=== PATIENT | female | born 1990 | race Caucasian/White ===

== ENCOUNTER 2021-06-21 10:02 | Emergency (ER) | payer OTHER, SELFPAY ==
[2021-06-21 10:12] VITALS: BP 129/79; PULSE 69; RESP 16; TEMP 36.4; O2SAT 100
--- NOTE | 2021-06-21 10:19 | ED.URI ---
HPI - URI/Sore Throat General Chief Complaint: Upper Respiratory Infection Stated Complaint: SORE THROAT/COUGH Source: patient and RN notes reviewed Mode of arrival: ambulatory Limitations: no limitations History of Present Illness HPI Narrative: Ms. Becerra is a 31-year-old female here today for complaints of cough, sore throat, right ear pain ,congestion for the last 5 days she has taken Mucinex and Tylenol Cold which has helped some it does get worse when she lays down at night. She is still tolerating food and fluids without any difficulty. Shee denies chills. She she states she has had Covid in the past. States the coughing is worse when she gets up in the morning. She denies anyone else sick in the house. MD elicited complaint: sore throat and nasal congestion Related Data Allergies Allergy/AdvReac Type Severity Reaction Status Date / Time No Known Allergies Allergy Unknown Unverified 07/24/19 13:27 Review of Systems Review of Systems: CONSTITUTIONAL: Denies body aches, chills, or sweats; + stated fever at times. EYES: Denies visual changes, redness, or discharge. ENT: For nasal congestion, rhinorrhea, sore throat CARDIOVASCULAR: Denies chest pain, palpitations, or edema. RESPIRATORY: Positive for cough. GASTROINTESTINAL: Denies abdominal pain, nausea, vomiting, or diarrhea. GENITOURINARY: Denies dysuria or hematuria. SKIN: Denies rash, itching, or wounds. MUSCULOSKELETAL: Denies back pain, joint pain, or myalgia. NEUROLOGIC: numbness, tingling, or weakness; positive for headache PSYCH: Denies depression or anxiety. All systems reviewed & are unremarkable except as noted in HPI and below PMFSH Family History Family History Father Hypertension Other Family history of cardiovascular disease Social History Social History Smoking status: Never smoker Alcohol intake: never Comments At time of signature, I have reviewed and agree with nursing past medical, surgical, social and family history unless otherwise noted. Please see nursing chart for further information. There is no relevant family history pertinent to the presenting complaint. Exam Narrative: GENERAL: Well-appearing, well-nourished, and in no acute distress. HEAD: Normocephalic, atraumatic. EYES: EOMI. No redness or drainage. Conjunctivae normal. ENT: Mucous membranes pink and moist. Nares erythematous. Clear nasal drainage noted bilaterally. Bilateral TMs fluid-filled bulging no erythema noted. NECK: Normal AROM. Supple. No lymphadenopathy. CHEST: No respiratory distress. Clear to auscultation. MUSCULOSKELETAL: No bony tenderness. EXTREMITIES: Normal range of motion. No edema. SKIN: Warm, dry, no rash. Capillary refill normal. Normal skin turgor. NEURO: No focal deficits. Alert and oriented x3. Gait steady. PSYCH: Normal affect. No signs of depression or anxiety. Course Course Emergency Course: rapid strep negative. Vital Signs Vital signs: Vital Signs Temperature 36.4 C 06/21/21 10:12 Pulse Rate 69 06/21/21 10:12 Respiratory Rate 16 06/21/21 10:12 Blood Pressure 129/79 06/21/21 10:12 Pulse Oximetry 100 06/21/21 10:12 Temperature 36.4 C 06/21/21 10:12 Pulse Rate 69 06/21/21 10:12 Respiratory Rate 16 06/21/21 10:12 Blood Pressure 129/79 06/21/21 10:12 Pulse Oximetry 100 06/21/21 10:12 Reviewed. Pt has been instructed to follow up with her PCP regarding her elevated blood pressure today. MDM - URI/Sore Throat MDM Narrative Medical decision making narrative: Rapid strep is negative; minimal erythema to the throat increased postnasal drainage noted likely viral infection. Differential Diagnosis Differential diagnosis: Likely upper respiratory infection, viral infection and pharyngitis Lab Data Attestation: I reviewed the patient's lab results. Labs: Strep Screen
== END 2021-06-21 10:39 | disposition home or self-care (01) ==
PROVIDERS: Emergency Provider Nurse Practitioner Family; PCP Physician Assistant
DX: B34.9 Viral infection, unspecified (principal)
CPT/HCPCS: 87081; 87880; 99213; G0463

== ENCOUNTER 2023-10-08 09:10 | Outpatient (CLI) | payer OTHER, SELFPAY ==
[2023-10-08 14:23] LABS: Basophils Absolute Auto 0.1 K/mm3 (0.0-0.1); Basophils Percent Auto 1.1 % (0.2-1.2); Eosinophils Percent Auto 0.6 % (0-4.4); Hematocrit 40.5 % (37.0-47.0); Immature Granulocyte Absolute 0.01 K/mm3 (0.00-0.031); Immature Granulocyte Percent A 0.2 % (0-0.5); Mean Corpuscular HGB Conc 32.1 g/dl (32-36); Mean Corpuscular Volume 90.2 fl (80-100); Mean Platelet Volume 11.9 fl (7.4-10.4); Monocytes Absolute Auto 0.4 K/mm3 (0.1-0.6); Monocytes Percent Auto 5.5 % (2.6-8.5); Neutrophils Absolute Auto 4.4 K/mm3 (1.3-6.7); Neutrophils Percent Auto 66.6 % (45.5-73.1); Platelet Count Result 238 k/mm3 (150-375); Red Blood Count 4.49 M/mm3 (4.2-5.4); Red Cell Distribution Width 13.1 % (11.5-14.5); White Blood Count 6.5 K/mm3 (4.5-10.0)
[2023-10-08 14:51] LABS: Hemoglobin A1C 5.1 % (<5.7)
[2023-10-08 14:56] LABS: Alanine Aminotransferase 19 U/L (6-35); Albumin Level 3.9 g/dL (3.5-5.1); Alkaline Phosphatase 56 U/L (38-126); Anion Gap 4 mmol/L (8-16); Aspartate Amino Transferase 37 U/L (14-36); Bilirubin,Total 0.5 mg/dL (0.2-1.3); Blood Urea Nitrogen 14 mg/dL (7-17); Calcium 8.6 mg/dL (8.4-10.2); Carbon Dioxide 28 mmol/L (22-30); Chloride 106 mmol/L (98-107); Cholesterol 179 mg/dL (0-200); Estimated Glomerular Filt Rate > 60; Glucose 77 mg/dL (65-110); HDL Direct 44 mg/dL; Potassium 4.7 mmol/L (3.4-5.0); Sodium 138 mmol/L (137-145); Triglycerides 55 mg/dL (<150)
[2023-10-08 14:57] LABS: Vitamin D 25 Hydroxy 30.1 ng/mL
[2023-10-08 15:08] LABS: LDL Cholesterol Direct 114 mg/dL
[2023-10-08 15:59] LABS: Folic Acid 6.3 ng/mL (2.76->20)
== END 2023-10-08 09:11 | disposition home or self-care (01) ==
LOC: ANHGOSHLAB 09:11
PROVIDERS: PCP Emergency Medicine; Visit Provider Emergency Medicine
DX: R53.83 Other fatigue (principal); Z68.43 Body mass index [BMI] 50.0-59.9, adult
CPT/HCPCS: 36415; 80053; 80061; 82306; 82607; 82746; 83036; 84443; 85025

== ENCOUNTER 2023-10-09 11:45 | Outpatient (CLI) | payer OTHER, SELFPAY ==
[2023-10-11 12:35] LABS: DHEA-Sulfate 336 mcg/dL (23-266)
[2023-10-12 12:15] LABS: Testosterone Total 20 ng/dL (2-45)
[2023-10-14 06:22] LABS: FSH 2.5 mIU/mL (***); LH 1.7 mIU/mL (***); Prolactin 9.7 ng/mL (***)
[2023-10-18 00:51] LABS: Estradiol, Ultrasensitive 68 pg/mL
== END 2023-10-09 11:46 | disposition home or self-care (01) ==
LOC: ANHGOSHLAB 11:46
PROVIDERS: PCP Emergency Medicine; Visit Provider Emergency Medicine
DX: N93.9 Abnormal uterine and vaginal bleeding, unspecified (principal); L68.0 Hirsutism
CPT/HCPCS: 36415; 82627; 82670; 83001; 83002; 84146; 84403

== ENCOUNTER 2023-11-05 09:45 | Outpatient (CLI) | payer OTHER, SELFPAY ==
--- NOTE | 2023-11-05 11:30 | NEURO_ITS ---
Impression: # Complains of numbness of hands with nocturnal paresthesia. # Bilateral moderate Carpal Tunnel Syndrome. # No ulnar neuropathy. # Needle/EMG exam mildly abnormal in APB. Nerve Conduction Studies Anti Sensory Summary Table Stim Site NR Peak (ms) P-T Amp (?V) Site1 Site2 Delta-P (ms) Dist (cm) William (m/s) Left Median Anti Sensory (2-3nd Digit) Wrist 6.0 6.8 Wrist 2-3nd Digit 6.0 14.0 23 Wrist 4.8 9.4 Wrist 2-3nd Digit 6.0 14.0 23 Right Median Anti Sensory (2-3nd Digit) Wrist 5.1 12.4 Wrist 2-3nd Digit 5.1 14.0 27 Wrist 5.4 13.8 Wrist 2-3nd Digit 5.1 14.0 27 Left Radial Anti Sensory (Base 1st Digit) Wrist 2.5 25.4 Wrist Base 1st Digit 2.5 0.0 Right Radial Anti Sensory (Base 1st Digit) Wrist 1.8 32.5 Wrist Base 1st Digit 1.8 0.0 Left Ulnar Anti Sensory (5th Digit) Wrist 2.4 85.6 Wrist 5th Digit 2.4 14.0 58 Right Ulnar Anti Sensory (5th Digit) Wrist 2.3 48.3 Wrist 5th Digit 2.3 14.0 61 Motor Summary Table Stim Site NR Onset (ms) O-P Amp (mV) Site1 Site2 Delta-0 (ms) Dist (cm) William (m/s) Left Median Motor (Abd Poll Brev) Wrist 5.3 3.7 Elbow Wrist 5.2 30.0 58 Elbow 10.5 3.1 Right Median Motor (Abd Poll Brev) Wrist 5.1 2.5 Elbow Wrist 5.1 29.0 57 Elbow 10.2 2.5 Left Ulnar Motor (Abd Dig Minimi) Wrist 2.1 8.9 A Elbow Wrist 4.9 33.0 67 A Elbow 7.0 7.5 Right Ulnar Motor (Abd Dig Minimi) Wrist 2.0 7.4 A Elbow Wrist 4.5 30.0 67 A Elbow 6.5 5.3 F Wave Studies NR F-Lat (ms) L-R F-Lat (ms) Left Median (Mrkrs) (Abd Poll Brev) 27.43 0.47 Right Median (Mrkrs) (Abd Poll Brev) 26.96 0.47 Left Ulnar (Mrkrs) (Abd Dig Min) 25.64 0.14 Right Ulnar (Mrkrs) (Abd Dig Min) 25.78 0.14 EMG Side Muscle Nerve Root Ins Act Fibs Amp Dur Recrt Comment Right 1stDorInt Ulnar C8-T1 Nml Nml Nml Nml Nml Right Ext Indicis Radial (Post Int) C7-8 Nml Nml Nml Nml Nml Right Ext Digitorum Radial (Post Int) C7-8 Nml Nml Nml Nml Nml Right BrachioRad Radial C5-6 Nml Nml Nml Nml Nml Right PronatorTeres Median C6-7 Nml Nml Nml Nml Nml Right Abd Poll Brev Median C8-T1 Nml Nml Nml >12ms Reduced Right ABD Dig Min Ulnar C8-T1 Nml Nml Nml Nml Nml Left 1stDorInt Ulnar C8-T1 Nml Nml Nml Nml Nml Left Ext Indicis Radial (Post Int) C7-8 Nml Nml Nml Nml Nml Left Ext Digitorum Radial (Post Int) C7-8 Nml Nml Nml Nml Nml Left BrachioRad Radial C5-6 Nml Nml Nml Nml Nml Left PronatorTeres Median C6-7 Nml Nml Nml Nml Nml Left Abd Poll Brev Median C8-T1 Nml Nml Nml >12ms Reduced Left ABD Dig Min Ulnar C8-T1 Nml Nml Nml Nml Nml MTDD
== END 2023-11-05 09:46 | disposition home or self-care (01) ==
LOC: ANHNEURO 09:47
PROVIDERS: PCP Emergency Medicine; Visit Provider Emergency Medicine
DX: G56.03 Carpal tunnel syndrome, bilateral upper limbs (principal)
CPT/HCPCS: 95886; 95911

== ENCOUNTER 2023-11-06 09:35 | Outpatient (CLI) | payer OTHER, SELFPAY ==
--- NOTE | ~2023-11-06 | US_ITS ---
EXAMINATION: US transvaginal DATE: 11/06/2023 10:33 INDICATION: Hirsutism TECHNIQUE: Multiple endovaginal sonographic images of the pelvis were obtained. COMPARISON: None. FINDINGS: The uterus measures 7.8 x 4 x 5.4 cm. The endometrial complex measures 6 mm. The right ovar y measures 2.9 x 2.1 x 1.8 cm and appears to contain a 1.6 cm corpus luteum. The left ovary measures 1.6 x 2.7 x 1.1 cm there is a questionable 1.4 cm isoechoic mass of the left ovary.. There is normal vascular flow in the ovaries. There is no free fluid in the pelvis. IMPRESSION: 1. Probable benign isoechoic lesion of the left ovary. Follow-up pelvic ultrasound in six months is r ecommended. Reviewed, dictated and finalized at location B. ITORY COUNSELOR IMPRESSION: 1. Probable benign isoechoic lesion of the left ovary. Follow-up pelvic ultraso und in six months is recommended.
== END 2023-11-06 09:36 | disposition home or self-care (01) ==
LOC: ANHIMG 09:37
PROVIDERS: PCP Emergency Medicine; Visit Provider Emergency Medicine
DX: N93.9 Abnormal uterine and vaginal bleeding, unspecified (principal); L68.0 Hirsutism
CPT/HCPCS: 76830

== ENCOUNTER 2023-11-12 09:25 | Emergency (ER) | payer OTHER, SELFPAY ==
[2023-11-12 09:45] VITALS: BP 126/79; PULSE 86; RESP 16; TEMP 36.9; O2SAT 100
--- NOTE | 2023-11-12 09:57 | ED.URI ---
HPI - URI/Sore Throat General Chief Complaint: Upper Respiratory Infection Stated Complaint: exposure to influenza Time Seen by Provider: 11/12/23 09:57 Source: patient, RN notes reviewed and old records reviewed Mode of arrival: ambulatory Limitations: no limitations History of Present Illness HPI Narrative: 33-year-old female who presents to [facility] with complaints of sinus headache,congestion, body aches and cough which started last night. Patient reports she has a child at home with influenza A that was diagnosed on Saturday 3 days ago. Patient reports highest fever noted to be 100.8F Patient reports that she did have flu shot this season.Patient reports that she has taken some Tylenol for her symptoms. MD elicited complaint: cough, rhinorrhea, nasal congestion and other (body aches) Onset (ago): day(s) (since last night) Pain scale (0-10): 3 Able to tolerate fluids by mouth: Yes Treatments prior to arrival: acetaminophen Related Data Home Medications Medication Instructions Recorded Confirmed escitalopram oxalate 20 mg tablet 20 mg PO DAILY 10/02/23 11/12/23 lisinopril 10 mg tablet 10 mg PO DAILY 10/02/23 11/12/23 Allergies Allergy/AdvReac Type Severity Reaction Status Date / Time No Known Allergies Allergy Unknown Verified 10/09/23 11:07 Review of Systems Review of Systems: CONSTITUTIONAL: Reports malaise, chills, sweats, or fever. EYES: Denies visual changes, redness, or discharge. ENT: Reports rhinorrhea, congestion, sinus pain, no otalgia and no sore throat. CARDIOVASCULAR: Denies chest pain, palpitations, or edema. RESPIRATORY: Reports cough.? Denies dyspnea. GASTROINTESTINAL: Denies abdominal pain, nausea, vomiting, diarrhea SKIN: Denies rash or itching. MUSCULOSKELETAL:positive for myalgia. NEUROLOGIC: Positive for headache. All systems reviewed & are unremarkable except as noted in HPI and below PMFSH Past Medical History Medical History (Updated 11/14/23 @ 07:40 by Carrol Mcfadden NP) Anxiety and depression HTN (hypertension) Surgical History Surgical History (Updated 11/14/23 @ 07:45 by Carrol Mcfadden NP) History of cholecystectomy History of dilatation and curettage History of tonsillectomy [place] teeth extracted Family History Family History Father Hypertension Heart problem Cancer Mother Cancer Hypertension Thyroid disorder Sibling Thyroid disorder Grandparent Thyroid disorder Other Family history of cardiovascular disease Social History Social History (Updated 11/14/23 @ 07:41 by Carrol Mcfadden NP) Years smoked: 6 Smoking status: Current every day smoker Tobacco type: e-cigarettes/vaping Smoking end date: 09/16/21 Alcohol intake: current Drinks per week: 1 Substance use: never Comments At time of signature, agree with nursing past medical, surgical, social and family history. There is no relevant family history pertinent to the presenting complaint Exam Narrative: GENERAL: Well-appearing, well-nourished, and in no acute distress. HEAD: Normocephalic EYES: PERRLA, conjunctivae clear ENT: Nares clear, turbinates edematous and erythematous, clear discharge, sinus pressure Mucous membranes moist. TM pearly ellis with dull light reflex bilaterally; no tragal tenderness. Oropharynx erythematous without lesions. Tonsils not present and throat without exudate, no drooling, no hoarseness, no trismus, uvula midline. NECK: Supple. No lymphadenopathy CHEST: Clear to auscultation, breath sounds equal. No wheezing, rhonchi, rales, or stridor. No respiratory distress, speaks in full sentences.cough SAO2 100% on room air HEART: Regular rate and rhythm. No murmur heard. SKIN: Warm, dry, no rash. NEURO: Alert and oriented x3. PSYCH: Normal mood and affect Course Course Emergency Course: Patient is aware of diagnosis, understands and agre
== END 2023-11-12 10:25 | disposition home or self-care (01) ==
PROVIDERS: Emergency Provider Registered Nurse; PCP Emergency Medicine
DX: J11.1 Influenza due to unidentified influenza virus with other respiratory manifestations (principal); Z20.822 Contact with and (suspected) exposure to COVID-19; I10 Essential (primary) hypertension; F41.9 Anxiety disorder, unspecified; F32.A Depression, unspecified
CPT/HCPCS: 87426; 87804; 99213; G0463

== ENCOUNTER 2023-12-17 08:15 | Outpatient (RCR) | payer OTHER, SELFPAY ==
--- NOTE | 2023-10-16 13:21 | OTOPEVAL1 ---
Assessment and note entered by ASHVIN Way/Leonie, CHT Evaluation Information 10/16/23 Diagnosis Bilateral carpal tunnel syndrome Subjective Information Patient reports experiencing symptoms on/off for about a year. 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 She feels constant numbness in the thumb, index, and middle finger tips. She reports night pain. Has been wearing splints at night for about a week. She is left handed. Reported Pain Level Pain Score 0: Self Report Additional Pain Score Comments No pain at rest, just constant tingling . Pain at worst 6/10. Assessment OT Clinical Summary Patient referred to OT with dx of bilateral carpal tunnel syndrome. She presents with pain, weakness , and reduced sensation of bilateral hands, which has been affecting her ability to complete work tasks and ADLs. Skilled OT indicated to reduce symptoms of median nerve compression through splinting, modalities, manual therapy, nerve glides, and strengthening. She will also benefit from HEP instruction and progression. Plan of Care Interventions Therapeutic Exercise,Manual Therapy,Neuro Re- education,Therapeutic Activities,Hot Pack/Cold Pack,Check Out for Orthotic/Pr,Ultrasound,Paraffin OT Services Indicated Yes Treatment Frequency and 2x/week for 8 visits Duration These treatments will address the objective and functional deficits as defined above. The patient will be advanced safely and appropriately in order for the patient to progress towards his/her prior level of function. Additional exercises will be introduced and as well as a comprehensive home exercise program upon discharge, if needed, ?to ensure carryover of functional gains achieved in the clinic. This treatment plan has been reviewed and agreement upon by the patient.
--- NOTE | 2023-10-16 13:21 | OPREHPOC ---
Outpatient Therapy Plan of Care This is a Multidisciplinary Plan of Care that may contain components documented by all disciplines (PT, OT, and ST.) OT Problem 1 OT Problem #1 Knowledge Deficit OT Goal 1 Goal 1. Patient to be independent with instructed materials. OT Problem 2 OT Problem #2 Pain OT Goal 1 Goal 1. Patient to report reduced pain in bilateral hands to 2/10 or less at worst .8 Target Visit 8 OT Problem 3 OT Problem #3 Impaired Flexibility OT Goal 1 Goal 1. Patient to be able to complete median nerve glide HEP without onset of paresthesias. Target Visit 8 OT Problem 4 OT Problem #4 Impaired Sensation OT Goal 1 Goal 1. Patient to test normal on the SWMF sensation test on bilateral hands. Target Visit 8 OT Problem 5 OT Problem #5 Impaired Strength OT Goal 1 Goal 1. Patient to be able to complete functional transportation security officer/ pinch strengthening with yellow putty x5 minutes without onset of paresthesias. Target Visit 8
--- NOTE | 2023-11-13 08:54 | PCOTNOTE ---
Patient called & cancelled scheduled appointment this date due to illness.
--- NOTE | 2023-12-02 11:06 | OTOPPROG ---
Assessment and note entered by ASHVIN Way/Leonie, CHT Progress Update 12/02/23 Diagnosis Bilateral carpal tunnel syndrome Subjective Information Patient reports her symptoms tend to feel better after therapy, but temporarily. She continues to report tingling in the median nerve distribution of bilateral hands. She is wearing splints at night and sometimes during the day. She reports she has an appointment with a hand surgeon Saturday. Assessment OT Clinical Summary Patient referred to OT with dx of bilateral carpal tunnel syndrome. She continues to present present with pain, and reduced sensation of bilateral hands, which has been affecting her ability to complete work tasks and ADLs. She has been compliant with all materials. There has been progress, however the progress is unfortunately temporary. She is following up with a hand surgeon next week. Continued skilled OT indicated to reduce symptoms of median nerve compression through use of modalities, manual therapy, nerve glides, stretching, and strengthening. Plan of Care Interventions Therapeutic Exercise,Manual Therapy,Neuro Re- education,Therapeutic Activities,Hot Pack/Cold Pack,Check Out for Orthotic/Pr,Ultrasound,Paraffin OT Services Indicated Yes Treatment Frequency and 1-2x/week for 5 visits Duration These treatments will address the objective and functional deficits as defined above. The patient will be advanced safely and appropriately in order for the patient to progress towards his/her prior level of function. Additional exercises will be introduced and as well as a comprehensive home exercise program upon discharge, if needed, ?to ensure carryover of functional gains achieved in the clinic. This treatment plan has been reviewed and agreement upon by the patient.
--- NOTE | 2023-12-31 14:28 | PCOTNOTE ---
Patient did not show up for scheduled appointment this date. Called patient and left voicemail regarding missed appointment.
--- NOTE | 2024-01-07 14:53 | OTOPDC ---
Assessment and note entered by Anurag Hodgson, OTR/Leonie, CHT OT Discharge Notification 01/07/24 OT Clinical Summary Patient has not shown for her last 2 therapy appointments and we have been unable to reach her. Patient attended 11 OT appointments for bilateral carpal tunnel syndrome. Overall, progress was guarded. She would make improvements temporarily, but the symptoms would return within a day or two. Discharging the patient due to poor attendance.
== END 2024-01-08 12:35 | disposition home or self-care (01) ==
LOC: ANHOT 08:15
PROVIDERS: PCP Emergency Medicine; Visit Provider Emergency Medicine
DX: G56.03 Carpal tunnel syndrome, bilateral upper limbs (principal)
CPT/HCPCS: 97018; 97035; 97110; 97140; 97165; 99199

== ENCOUNTER 2024-04-29 00:29 | Day surgery (SDC) | payer OTHER, SELFPAY ==
[2024-04-22 14:59] VITALS: BMI 50.5
--- NOTE | 2024-04-22 15:09 | PC.NURSE ---
Report to the Outpatient Waiting Room, entrance under the green pavilion located off [facility], at time 0800_ on date _04/29/24_. Planned Procedure Time: _1000. Time changes happen often and if your time is changed the preop area will call you the afternoon before. - You and your visitor will be asked to self-screen and do not enter if you have any COVID symptoms. - A mask is optional within the hospital at this time. Patients may have clear liquids (water, carbonated beverages, clear teas, apple juice) until 8 hours prior to surgery with a maximum of 20 ounces. - No food from midnight until time of surgery - Infants may have breast milk until 4 hours before surgery, formula 6 hours prior to surgery. - Children will be allowed to drink immediately following surgery. If applicable, please bring a bottle or sippy cup to assist with drinking. Juice, water, soda, and popsicles are readily available. For infants on formula, please bring formula the day of surgery. Pacifiers are allowed. Take the following medications with a SIP of water the morning of surgery: NONE DO NOT STOP ANY OF YOUR OTHER PRESCRIPTION MEDICATIONS PRIOR TO SURGERY ?EXCEPT THE FOLLOWING Medications to discontinue per physician VITAMINS, SUPPLIMENTS Date to take last dose 04/26/24 Please no make-up, nail czech, hairspray, perfume, deodorant, or body powder the day of surgery. No jewelry (including any body piercings) or valuables the day of surgery, leave them at home. Please take a shower or bath the night before, or the morning of, surgery with an antibacterial soap. Wear comfortable, loose fitting clothing. Children are encouraged to wear pajamas. - Jewelry must be removed prior to entering the operating room. Rings and piercings that are not removed may be cut off. - The hospital will not accept responsibility for valuables. - Please leave all valuables, including medications, at home the day of surgery. If you are going home after surgery, a licensed concrete mixing truck driver must drive you home. - NO public transportation without another adult if you receive anesthesia. - We recommend that an adult stay with you for 24 hours following discharge. - We also recommend that you do not drive, make important decision, drink alcoholic beverages, or take any drugs that were not prescribed by your health care provider for at least 24 hours after your discharge time. For Pediatric surgeries, we recommend two adults accompany the child home. Follow any additional instructions given to you from your surgeon. If you or anyone in your household have experienced Covid symptoms in the past week, please notify your surgeon or the nurse liaison at the phone number below for possible testing. Telephone instructions given to _PATIENT___and asked if any additional questions and then verbalized understanding. Patient advised to call surgeon office or pre surgery nurse liaison [phone] if any additional questions.
--- NOTE | 2024-04-29 06:49 | P.HP_ITS ---
History of Present Illness History of Present Illness Consent: Chief complaint: right carpal tunnel syndrome Narrative: Patient seen and examined in pre-operative holding area. No interval change in medical history or symptoms. Patient recalls previous discussion of benefits and alternatives to procedure. Continues to desire to proceed with right endoscopic possibleopen carpal tunnel release. Reviewed procedure, post-op expectations and risks including but not limited to bleeding, infection, injury to tendon/nerve/vessel, decreased hand function, stiffness, RSD, no change or worsening of symptoms. I discussed the possible use of assistants and their pa rticipation in the case. Patient stated understanding and signed the consent form wishing to proceed. Review of Systems Review of Systems: All systems reviewed & are unremarkable except as noted in HPI and below PMFSH Past Medical History Medical History Anxiety and depression HTN (hypertension) Surgical History Surgical History History of cholecystectomy History of dilatation and curettage History of tonsillectomy [place] teeth extracted Family History Family History Father Hypertension Heart problem Cancer Mother Cancer Hypertension Thyroid disorder Sibling Thyroid disorder Grandparent Thyroid disorder Other Family history of cardiovascular disease Social History Social History Smoking packs per day: 0.5 Smoking cigarettes per day: 10.0 Years smoked: 3 Smoking pack-years: 1.50 Smoking status: Current every day smoker Tobacco type: e-cigarettes/vaping Smoking end date: 09/16/21 Additional smoking assessment comments: 5 YRS DAILY VAPING, NO CIGARETTES AT THIS TIME Alcohol intake: current Drinks per week: 1 Alcohol use details: 1-2 PER MONTH Substance use: former Substance use type: marijuana Other substance usage details: LAST USE 3 YRS AGO Living arrangements: with family Meds Home Medications and Allergies Home Medications Medication Instructions Recorded Confirmed Type lisinopril 10 mg tablet 10 mg PO DAILY 10/02/23 04/29/24 History calcium 300 mg-D3 25 mcg-magnesium 1 tablet PO DAILY 04/22/24 04/29/24 History 66 mg-K2 37.5 mcg-herbal tablet (Alive Calcium-Vitamin D3-K2) multivit with minerals-iron 18 1 tablet PO DAILY 04/22/24 04/29/24 History mg-folic ac 400 mcg-vit K 25 mcg tablet (Adults Multivitamin) omega-3 fatty acids-fish oil 300 1 cap PO DAILY 04/22/24 04/29/24 History mg-500 mg capsule (Fish Oil) turmeric 400 mg capsule 400 mg PO DAILY 04/22/24 04/29/24 History Allergies Allergy/AdvReac Type Severity Reaction Status Date / Time No Known Allergies Allergy Unknown Verified 04/22/24 14:56 Exam Narrative: unchanged Assessment and Plan Assessment and plan (1) Carpal tunnel syndrome on both sides: Code(s): G56.03 - Carpal tunnel syndrome, bilateral upper limbs Status: Acute Assessment and Plan: cont as above
--- NOTE | 2024-04-29 06:50 | P.OP_ITS ---
Procedure Note - Detailed Date of Procedure 04/29/24 Pre-op Diagnosis right carpal tunnel syndrome Post-op Diagnosis Same Procedure Performed right ectr Surgeon Ting Puri MD Knit Goods Mender philippe vences pa-c Anesthesia MAC Description of Procedure INFORMED CONSENT: The patient was seen and examined and marked in the pre-op area.? The patient signed the consent form. PROCEDURE IN DETAIL:The patient taken back to OR on the stretcher in supine position. Time out performed with anesthesia, surgeon and staff agreeing on patient's name site and surgery to be performed SCDs were placed on the lower extremities and inflated. A tourniquet was placed on {right} upper extremity and antibiotics given IV After anesthesia administered sedation I injected {5}cc 1%lido with epi and 0.5% marcaine plain at the operative site The?{right upper extremity}?was prepped and draped in sterile fashion the??{right upper extremity} was? exsanguinated with Esmarch bandage and tourniquet inflated to 250mmHg I made a transverse incision in the {right} volar distal wrist crease through skin and dermis with 15 blade scalpel.? Littler scissors spread down to antebrachial fascia. A small incision was made in antebrachial fascia allowing access to Carpal tunnel. I proceeded with sequential dilation staying in line with the ring finger and hugging the hook of the hamate.? I then used the synovial elevator to free any adhesions from the underside of the transverse carpal ligament. Next I was able to insert the Microaire endoscopic carpal tunnel device with direct visualization of the transverse fibers on the monitor and proceeded with complete segmental retrograde release of the ligament in its entirety.? I irrigated with normal saline and closed with 4-0 monocryl for dermis and subcuticular closure. A dressing of Dermabond, 4x4, elena, and a volar splint was applied for patient safety, security, and comfort and secured with an noe bandage after the tourniquet was let down noting the hand was warm and well perfused. The patient was then awaken from anesthesia and transferred to the recovery room in stable condition.? Complications - none EBL- 0cc Disposition - home in stable conditions philippe vences pa-c was essential for positioning, retraction, closure and dressing placement [facility] Billing Surgery - Charge Forward: Surgery Billing ([id number] for philippe)
[2024-04-29 08:15] VITALS: BP 142/83; PULSE 80; RESP 20; TEMP 36.2; O2SAT 99
[2024-04-29] MEDS: LACTATED RINGERS 1,000 ML 30 ML IV CONT (08:30)
--- NOTE | 2024-04-29 08:41 | WPDANESEPPF ---
Anes - Initial Pre Proc Eval Procedure: Operation Date: 04/29/24 10:00 Proposed Procedures p Right Endoscopic Carpal Tunnel Release, Possible Open - Ting Puri MD Date/Time: 04/29/24 08:41 Surgeon: Ting Puri MD Pre Op Diagnosis: right carpal tunnel syndrome Patient Data Age: 34 Gender: F Height: 1.68 m Weight: 142 kg Allergies Allergy/AdvReac Type Severity Reaction Status Date / Time No Known Allergies Allergy Unknown Verified 04/22/24 14:56 Home Medications Medication Instructions Recorded Confirmed Type lisinopril 10 mg tablet 10 mg PO DAILY 10/02/23 04/29/24 History calcium 300 mg-D3 25 mcg-magnesium 1 tablet PO DAILY 04/22/24 04/29/24 History 66 mg-K2 37.5 mcg-herbal tablet (Alive Calcium-Vitamin D3-K2) multivit with minerals-iron 18 1 tablet PO DAILY 04/22/24 04/29/24 History mg-folic ac 400 mcg-vit K 25 mcg tablet (Adults Multivitamin) omega-3 fatty acids-fish oil 300 1 cap PO DAILY 04/22/24 04/29/24 History mg-500 mg capsule (Fish Oil) turmeric 400 mg capsule 400 mg PO DAILY 04/22/24 04/29/24 History Patient hx anesthesia problems: none Family hx anesthesia problems: none Results Review: All pre-operative results and documents have been reviewed as part of the pre-operative evaluation. [facility] Past Medical History Medical History Anxiety and depression HTN (hypertension) Surgical History Surgical History History of cholecystectomy History of dilatation and curettage History of tonsillectomy [place] teeth extracted Family History Family History Father Hypertension Heart problem Cancer Mother Cancer Hypertension Thyroid disorder Sibling Thyroid disorder Grandparent Thyroid disorder Other Family history of cardiovascular disease Social History Social History Smoking packs per day: 0.5 Smoking cigarettes per day: 10.0 Years smoked: 3 Smoking pack-years: 1.50 Smoking status: Current every day smoker Tobacco type: e-cigarettes/vaping Smoking end date: 09/16/21 Additional smoking assessment comments: 5 YRS DAILY VAPING, NO CIGARETTES AT THIS TIME Alcohol intake: current Drinks per week: 1 Alcohol use details: 1-2 PER MONTH Substance use: former Substance use type: marijuana Other substance usage details: LAST USE 3 YRS AGO Living arrangements: with family Jesus Alberto - Autumn Final PreProcedure Day of Procedure 04/29/24 08:41 Patient weight: super morbidly obese Heart: regular rate and rhythm Lungs: clear to auscultation and normal air movement Airway: Mallampati scale class III Neurological: alert and oriented Last oral intake: >/= 8 hours ASA classification: III Emergent: no Anesthetic plan: proceed Anesthesia type and monitoring: general (LMA if needed) GIVS Results Review: All pre-operative results and documents have been reviewed as part of the pre-operative evaluation. Informed Consent: The patient's anesthetic plan and its attendant risks and benefits were discussed with the patient/family/POA. Questions were solicited and answers provided to the satisfaction of the patient/family/POA.
[2024-04-29] MEDS: ceFAZolin 3 GM/D5W 100 ML 100 ML IVPB (09:31)
[2024-04-29] MEDS: LIDO 1%/EPINEPHRINE 1:100,000 50 ML VIAL 10 ML INFILTRATE (09:32)
[2024-04-29] MEDS: BUPivacaine HCL 0.5% PF 30 ML VIAL INFILTRATE (09:34)
[2024-04-29 09:54] VITALS: BP 127/69; PULSE 83; RESP 18; O2SAT 98
[2024-04-29 10:20] VITALS: BP 131/79; PULSE 70
[2024-04-29 10:50] VITALS: BP 101/70; PULSE 59
== END 2024-04-29 10:53 | disposition home or self-care (01) ==
PROVIDERS: PCP Emergency Medicine; Visit Provider Plastic Surgery
PROC: 01N54ZZ Release Median Nerve, Percutaneous Endoscopic Approach (ICD-10-PCS; CPT 29848; principal; 2024-04-29 10:00)
DX: G56.01 Carpal tunnel syndrome, right upper limb (principal); I10 Essential (primary) hypertension; F41.8 Other specified anxiety disorders; F17.290 Nicotine dependence, other tobacco product, uncomplicated; E66.01 Morbid (severe) obesity due to excess calories; Z68.43 Body mass index [BMI] 50.0-59.9, adult
CPT/HCPCS: 29848; J0690; J1100; J2250; J2405; J2704; J3010; J7120

== ENCOUNTER 2025-01-06 08:40 | Outpatient (CLI) | payer OTHER, SELFPAY ==
--- NOTE | ~2025-01-06 | US_ITS ---
US pelvic complete w TV Ordering provider: Haily Noel MD History: . N83.8 - Other noninflammatory disorders of ovary, fallopi... . Comparison: November 06, 2023 Technique: Transabdominal and endovaginal ultrasound of the pelvis (Doppler ultrasound interrogation techniques used as needed for this exam.) FINDINGS: CERVIX: Normal. UTERUS: Measures 6.9x 4.7x 4.3 cm in length which is within normal limits and is anteverted. No myom etrial masses. ENDOMETRIUM: Normal in thickness measuring 0.7 mm. No endometrial masses, cysts or fluid. CUL DE SAC: No free fluid. RIGHT OVARY: Normal in size measuring 2.3x 1.7x 1.8 cm. Normal echotexture. Doppler vascular flow pre sent. LEFT OVARY: Normal in size measuring 2.4x 2.3x 1.3 Normal echotexture. Doppler vascular flow present. Isoechoic area measuring 1.6 x 1.8 x 0.9 cm which is most likely normal tissue. Follow-up advised. ADNEXA: Normal. No mass. IMPRESSION: Isoechoic area with ill-defined borders in the left ovary which is most likely normal tissue. Follow- up ultrasound is advised. Otherwise, normal pelvic ultrasound. Reviewed, dictated and finalized at location A. IMPRESSION: Isoechoic area with ill-defined borders in the left ovary which is most likely normal tissue. Follow-up ultrasound is advised. Otherwise, normal pelvic ultras ound.
--- OUTSIDE RECORDS SUMMARY | 2025-01-06 09:09 | XMS_ITS | Clinical Summary ---
Author Organization [facility] Address [address] [place] [address] Care Team Providers Care Manager Talent Acquisition Name Role Phone Unavailable Primary Care Provider Unavailabl e Source Comments [facility],non-owned Affiliates and Associated Physician Practices is amultiple site organization consisting of ambulatory clinics and hospital sitesin [place], [place], [place] and [place]. This disclosure is being madepursuant to the Care Everywhere program and may not contain all information available regarding this patient. 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 Gender Identity Not on file Sexual Orientation Not on file Plan of Treatment Health Maintenance Due Date Last Done Comments HIV SCREENING 2005 HEPATITIS C SCREENING 01/26/2008 DTAP/TDAP/TD VACCINES (1 - Tdap) 2009 HEPATITIS B VACCINE (1 of 3 - 19+ 3-dose series) 2009 COVID-19 VACCINE ( - 2023-2 5 season) 2024 DEPRESSION SCREENING 09/16/2024 INFLUENZA VACCINE (Season Ended) 2025 ZOSTER VACCINE (1 of 2) 01/31/2040 HIB VACCINE Aged Out No longer eligi ble based on patient's age to complete this topic HPV VACCINE Aged Out No longer eligi ble based on patient's age to complete this topic MENINGOCOCCAL (Group B) VACC INE SHARED DECISION-MAKING Aged Out No longer eligibl e based on patient's age to complete this topic MENINGOCOCCAL GROUPS A/C/Y/W VACCINE Aged Out No longer eligible b ased on patient's age to complete this topic PNEUMOCOCCAL VACCINE Aged Out No long er eligible based on patient's age to complete this topic Insurance
--- OUTSIDE RECORDS SUMMARY | 2025-01-06 09:09 | XMS_ITS | Clinical Summary ---
Author Organization [employer] [address] Address [address] [facility] [address] [place] [address] Phone Care Team Providers Care Engine Builder Name Role Phone Haily Noel MD Primary Care Provider +1 [phone] Social History Tobacco Use Types Packs/Day Years Used Date Smoking Tobacco: Never Assessed Comments Unknown Sex and Gender Information Value Date Recorded Sex Assigned at Not on file Legal Sex Female 3:35 PM CDT Gender Identity Not on file Sexual Orientation Not on file Last Filed Vital Signs Vital Sign Reading Time Taken Comments Blood Pressure 117/67 07/28/2015 11:00 AM TANGIBLE PERSONAL PROPERTY APPRAISER si tting Pulse 82 07/28/2015 11:00 AM TANGIBLE PERSONAL PROPERTY APPRAISER Temperature - - Respiratory Rate - - Oxygen Saturation - - Inhaled Oxygen Concentration - - Weight 147.9 kg (326 lb) 07/28/2015 11:00 AM TANGIBLE PERSONAL PROPERTY APPRAISER Height 167.6 cm (5' 6 ) 07/28/2015 11:00 AM TANGIBLE PERSONAL PROPERTY APPRAISER Body Mass Index 52.62 07/28/2015 11:00 AM TANGIBLE PERSONAL PROPERTY APPRAISER Plan of Treatment Health Maintenance Due Date Last Done Comments DTAP/TDAP/TD VACCINES (1 - Tdap) 2009 HEPATITIS B VACCINES (1 of 3 - 19+ 3-dose series) 2009 HPV/Cotest (21-29) 2011 CERVICAL CANCER SCREENING 01/31/2020 HPV/Cotest (30-65) 01/31/2020 PAP SMEAR 01/31/2020 INFLUENZA VACCINE (#1) 2024 HPV VACCINES Aged Out No longer eligi ble based on patient's age to complete this topic Care Teams Engine Builder Relationship Specialty Start Date End Date Haily Noel MD PCP - General Family Practice 11/22/15
--- OUTSIDE RECORDS SUMMARY | 2025-01-06 09:09 | XMS_ITS | Clinical Summary ---
Author Organization [facility] [address] Address [address] [place] [phone] Care Team Providers Care Habilitative Interventionist Name Role Phone Mary Gonzalez Primary Care Provi myriam Allergies No known active allergies Medications escitalopram (LEXAPRO) 20 mg tablet Take 20 mg by mouth nightly 2 Active Ashlyna 0.15 mg-30 mcg (84)/10 mcg (7) tablets,dose pack,3 month Take 1 tablet by mouth daily 2 Active albuterol HFA (PROVENTIL HFA,VENTOLIN HFA,PROAIR HFA) 90 mcg/actuation inhalerIndicati ons:Bronchitis Inhale 2 puffs every 6 (six) hours as needed for wheezing or shortness of breath 1 each 2 Active benzonatate (TESSALON) 200 mg capsuleIndicati ons:Bronchitis Take 1 capsule (200 mg total) by mouth 3 (three) times a day as needed for cough 30 capsule 2 Active Active Problems Problem Noted Date Diagnosed Date Benign intracranial hypertension 10/07/2015 Surgical History Surgery Date Site/Laterality Comments CHOLECYSTECTOMY Social History Tobacco Use Types Packs/Day Years Used Date Smoking Tobacco: Former Personal Safety Answer Date Recorded Getting School Help Needed Not on file 11/11 Comments Unknown Sex and Gender Information Value Date Recorded Sex Assigned at Not on file Legal 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 Gender Identity Not on file Sexual Orientation Not on file Obstetrics History Last Filed Vital Signs Vital Sign Reading Time Taken Comments Blood Pressure 138/95 04/11/2022 10:41 AM CDT Pulse 87 04/11/2022 10:41 AM CDT Temperature 37.4 C (99.3 F) 04/11/2022 10:41 AM CDT Respiratory Rate 16 04/11/2022 10:41 AM CDT Oxygen Saturation 97% 04/11/2022 10:41 AM CDT Inhaled Oxygen Concentration - - Weight 149.7 kg (330 lb) 04/11/2022 10:41 AM CDT Height 167.6 cm (5' 6 ) 04/11/2022 10:41 AM CDT Body Mass Index 53.26 04/11/2022 10:41 AM CDT Plan of Treatment Health Maintenance Due Date Last Done Comments Cervical Cancer Screening 1990 Depression Screening 1990 Hepatitis C Screening 1990 Varicella Vaccines (1 of 2 - 13+ 2-dose series) 2003 Hepatitis B Screening 01/31/2008 Regular Well Visit/Exam 18-64 01/31/2008 HPV Vaccines (3 - 3-dose SCD M series) 04/13/2020 12/16/2019, 10/14/2019 Influenza Vaccine (#1) 2024 DTaP/Tdap/Td Vaccine (2 - Td or Tdap) 12/16/2025 12/17/2015 Pneumococcal vaccine <65 Aged Out No longer eligible based on patient's age to complete this topic Insurance [facility] Care Teams Habilitative Interventionist Relationship Specialty Start Date End Date Mary Gonzalez PA [address] [place] [address] PCP - General Physician Warm In 04/11/22
--- OUTSIDE RECORDS SUMMARY | 2025-01-06 09:09 | XMS_ITS | Referral Summary ---
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
== END 2025-01-06 08:41 | disposition home or self-care (01) ==
LOC: ANHIMG 08:42
PROVIDERS: PCP Family Medicine; Visit Provider Family Medicine
DX: N83.292 Other ovarian cyst, left side (principal); N83.8 Other noninflammatory disorders of ovary, fallopian tube and broad ligament
CPT/HCPCS: 76830; 76856

== ENCOUNTER 2025-04-27 08:28 | Outpatient (CLI) | payer OTHER, SELFPAY ==
[2025-04-27 13:34] LABS: Alanine Aminotransferase 13 U/L (6-35); Albumin Level 4.1 g/dL (3.5-5.1); Alkaline Phosphatase 51 U/L (38-126); Anion Gap 7 mmol/L (4-12); Aspartate Amino Transferase 34 U/L (14-36); Bilirubin,Total 0.7 mg/dL (0.2-1.3); Blood Urea Nitrogen 13 mg/dL (7-17); Calcium 9.2 mg/dL (8.4-10.2); Carbon Dioxide 25 mmol/L (22-30); Chloride 107 mmol/L (98-107); Cholesterol 177 mg/dL (0-200); Estimated Glomerular Filt Rate > 60; Glucose 72 mg/dL (65-110); HDL Direct 42 mg/dL; Potassium 4.3 mmol/L (3.4-5.0); Sodium 139 mmol/L (137-145); Total Protein 7.2 g/dL (6.3-8.2); Triglycerides 100 mg/dL (<150)
[2025-04-27 14:14] LABS: Thyroid Stimulating Hormone 0.229 uIU/mL (0.465-4.680)
[2025-04-27 15:00] LABS: Hemoglobin A1C 4.8 % (<5.7)
== END 2025-04-27 08:29 | disposition home or self-care (01) ==
LOC: ANHGOSHLAB 08:29
PROVIDERS: PCP Family Medicine; Visit Provider Family Medicine
DX: E66.01 Morbid (severe) obesity due to excess calories (principal); Z68.41 Body mass index [BMI] 40.0-44.9, adult
CPT/HCPCS: 36415; 80053; 80061; 83036; 84443

== ENCOUNTER 2025-04-28 11:02 | Outpatient (CLI) | payer OTHER, SELFPAY ==
--- OUTSIDE RECORDS SUMMARY | 2025-04-28 11:06 | XMS_ITS | Clinical Summary ---
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
--- OUTSIDE RECORDS SUMMARY | 2025-04-28 11:06 | XMS_ITS | Clinical Summary ---
Author Organization [facility] [address] Address [address] [facility] [address] [place] [address] Phone Care Team Providers Care Jacquard Loom Card Changer Name Role Phone Haily Noel MD Primary Care Provider [phone] Social History Tobacco Use Types Packs/Day Years Used Date Smoking Tobacco: Never Assessed Comments Unknown Sex and Gender Information Value Date Recorded Sex Assigned at Not on file Legal Sex Female 3:35 PM CDT Gender Identity Not on file Sexual Orientation Not on file Last Filed Vital Signs Vital Sign Reading Time Taken Comments Blood Pressure 117/67 07/28/2015 11:00 AM DATA MODELER si tting Pulse 82 07/28/2015 11:00 AM DATA MODELER Temperature - - Respiratory Rate - - Oxygen Saturation - - Inhaled Oxygen Concentration - - Weight 147.9 kg (326 lb) 07/28/2015 11:00 AM DATA MODELER Height 167.6 cm (5' 6) 07/28/2015 11:00 AM DATA MODELER Body Mass Index 52.62 07/28/2015 11:00 AM DATA MODELER Plan of Treatment Health Maintenance Due Date Last Done Comments HPV VACCINES (1 - 3-dose series) 2005 DTAP/TDAP/TD VACCINES (1 - Tdap) 2009 HEPATITIS B VACCINES (1 of 3 - 19+ 3-dose series) 01/14 HPV/Cotest (21-29) 2011 CERVICAL CANCER SCREENING 01/31/2020 HPV/Cotest (30-65) 01/31/2020 PAP SMEAR 01/31/2020 INFLUENZA VACCINE (#1) 2025 Care Teams Jacquard Loom Card Changer Relationship Specialty Start Date End Date Haily Noel MD PCP - General Family Practice 11/22/15
[2025-04-28 13:50] LABS: Free T4 Free Thyroxine 1.09 ng/dL (0.78-2.19)
[2025-04-28 14:10] LABS: Thyroid Stimulating Hormone 1.370 uIU/mL (0.465-4.680)
== END 2025-04-28 11:03 | disposition home or self-care (01) ==
LOC: ANHGOSHLAB 11:03
PROVIDERS: PCP Family Medicine; Visit Provider Family Medicine
DX: Z01.419 Encounter for gynecological examination (general) (routine) without abnormal findings (principal); R79.89 Other specified abnormal findings of blood chemistry; Z87.42 Personal history of other diseases of the female genital tract
CPT/HCPCS: 36415; 84439; 84443; 86376; 87624; 88175; G0145

== ENCOUNTER 2025-07-01 08:22 | Outpatient (CLI) | payer OTHER, SELFPAY ==
--- OUTSIDE RECORDS SUMMARY | 2025-07-01 08:32 | XMS_ITS | Clinical Summary ---
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
--- OUTSIDE RECORDS SUMMARY | 2025-07-01 08:32 | XMS_ITS | Clinical Summary ---
Author Organization [facility] Address [address] [place] [address] Care Team Providers Care Adjuster And Inspector Name Role Phone Unavailable Primary Care Provider Unavailabl e Source Comments [facility],non-owned Affiliates and Associated Physician Practices is amultiple site organization consisting of ambulatory clinics and hospital sitesin [place], [place], [place]. This disclosure is being madepursuant to the Care Everywhere program and may not contain all information available regarding this patient. Last updated 18.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
--- OUTSIDE RECORDS SUMMARY | 2025-07-01 08:32 | XMS_ITS | Clinical Summary ---
Author Organization [employer] [address] Address [address] [facility] [address] [place] [address] Phone Care Team Providers Care Vp Training Name Role Phone Haily Noel MD Primary Care Provider [phone] Social History Tobacco Use Types Packs/Day Years Used Date Smoking Tobacco: Never Assessed Comments Unknown Sex and Gender Information Value Date Recorded Sex Assigned at Not on file Legal Sex Female 3:35 PM CDT Gender Identity Not on file Sexual Orientation Not on file Last Filed Vital Signs Vital Sign Reading Time Taken Comments Blood Pressure 117/67 07/28/2015 11:00 AM FOUNDRY WORKER si tting Pulse 82 07/28/2015 11:00 AM FOUNDRY WORKER Temperature - - Respiratory Rate - - Oxygen Saturation - - Inhaled Oxygen Concentration - - Weight 147.9 kg (326 lb) 07/28/2015 11:00 AM FOUNDRY WORKER Height 167.6 cm (5' 6) 07/28/2015 11:00 AM FOUNDRY WORKER Body Mass Index 52.62 07/28/2015 11:00 AM FOUNDRY WORKER Plan of Treatment Health Maintenance Due Date Last Done Comments DTAP/TDAP/TD VACCINES (1 - Tdap) 2009 HEPATITIS B VACCINES (1 of 3 - 19+ 3-dose series) 01/14 HPV/Cotest (21-29) 2011 HPV VACCINES (1 - 3-dose SCDM series) 2017 CERVICAL CANCER SCREENING 01/31/2020 HPV/Cotest (30-65) 01/31/2020 PAP SMEAR 01/31/2020 INFLUENZA VACCINE (#1) 2025 Care Teams Vp Training Relationship Specialty Start Date End Date Haily Noel MD PCP - General Family Practice 11/22/15
[2025-07-01 19:15] LABS: SPREG INTERNAL CONTROL Positive; Serum Qual hCG Positive
== END 2025-07-01 08:23 | disposition home or self-care (01) ==
LOC: ANHGOSHLAB 08:23
PROVIDERS: PCP Family Medicine; Visit Provider Family Medicine
DX: N91.2 Amenorrhea, unspecified (principal)
CPT/HCPCS: 36415; 84703

== ENCOUNTER 2025-07-09 15:28 | Outpatient (CLI) | payer OTHER, SELFPAY ==
--- NOTE | ~2025-07-09 | US_ITS ---
EXAMINATION: US OB <=14 wk fetus w TV DATE: 07/09/2025 16:56 INDICATION: First trimester . Recent abnormal ultrasound of the left ovary. TECHNIQUE: Real-time pelvic ultrasound utilizing both a transvaginal and transabdominal probe was performed. The interpreting radiologist was not present for the study. COMPARISON: None. FINDINGS: The uterus measures 9.1 x 5.0 x 6.9 cm. The endometrial complex is thickened measuring 2.2 cm in thickness. There is small amount of fluid with irregular margins within the endometrial canal. No evident intrauterine gestational sac. The right ovary measures 3.7 x 2.7 x 2.9 cm. Increased peripheral vascular flow at the margins of a 2.7 cm diameter anechoic right ovarian likely corpus luteum cyst. The left ovary measures 2.5 x 2.3 x 1.0 cm. Small echogenic calcific lesion at the periphery of the left ovary. Vascular flow identified in the left ovary on color Doppler. There are couple subcentimeter anechoic cysts/follicles at the left ovary. There is no free fluid in the pelvis. IMPRESSION: 1. Thickened endometrial complex with small amount of fluid within the endometrial canal but no evident intrauterine gestational sac. Differential would include early , failed or ectopic . Correlate with serial beta-hCG levels and with repeat imaging as clinically indicated. Reviewed, dictated and finalized at location A. IMPRESSION: 1. Thickened endometrial complex with small amount of fluid within the endometr ial canal but no evident intrauterine gestational sac. Differential would inclu de early , failed or ectopic . Correlate with seria l beta-hCG levels and with repeat imaging as clinically indicated.
--- NOTE | ~2025-07-09 | US_ITS ---
EXAMINATION: US thyroid DATE: 07/09/2025 16:56 INDICATION: Abnormal findings of blood chemistry TECHNIQUE: Multiple ultrasound images of the thyroid were obtained. COMPARISON: None. FINDINGS: The right thyroid lobe measures 5.5 x 2.1 x 1.4 cm. The left thyroid lobe measures 5.4 x 2.0 x 1.3 cm. No discrete nodules identified. There is normal echotexture, echogenicity and vascular flow throughout the thyroid gland. IMPRESSION: 1. Normal thyroid ultrasound. Reviewed, dictated and finalized at location A.
--- OUTSIDE RECORDS SUMMARY | 2025-07-09 15:31 | XMS_ITS | Clinical Summary ---
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
--- OUTSIDE RECORDS SUMMARY | 2025-07-09 15:31 | XMS_ITS | Clinical Summary ---
Author Organization [employer] [address] Address [address] [facility] [address] [place] [address] Phone Care Team Providers Care Grey Inspector Name Role Phone Haily Noel MD Primary Care Provider [phone] Social History Tobacco Use Types Packs/Day Years Used Date Smoking Tobacco: Never Assessed Comments Unknown Sex and Gender Information Value Date Recorded Sex Assigned at Not on file Legal Sex Female 3:35 PM CDT Gender Identity Not on file Sexual Orientation Not on file Last Filed Vital Signs Vital Sign Reading Time Taken Comments Blood Pressure 117/67 07/28/2015 11:00 AM DISTRICT ATTORNEY si tting Pulse 82 07/28/2015 11:00 AM DISTRICT ATTORNEY Temperature - - Respiratory Rate - - Oxygen Saturation - - Inhaled Oxygen Concentration - - Weight 147.9 kg (326 lb) 07/28/2015 11:00 AM DISTRICT ATTORNEY Height 167.6 cm (5' 6) 07/28/2015 11:00 AM DISTRICT ATTORNEY Body Mass Index 52.62 07/28/2015 11:00 AM DISTRICT ATTORNEY Plan of Treatment Health Maintenance Due Date Last Done Comments DTAP/TDAP/TD VACCINES (1 - Tdap) 2009 HEPATITIS B VACCINES (1 of 3 - 19+ 3-dose series) 01/14 HPV/Cotest (21-29) 2011 HPV VACCINES (1 - 3-dose SCDM series) 2017 CERVICAL CANCER SCREENING 01/31/2020 HPV/Cotest (30-65) 01/31/2020 PAP SMEAR 01/31/2020 INFLUENZA VACCINE (#1) 2025 Care Teams Grey Inspector Relationship Specialty Start Date End Date Haily Noel MD PCP - General Family Practice 11/22/15
--- OUTSIDE RECORDS SUMMARY | 2025-07-09 15:31 | XMS_ITS | Clinical Summary ---
Author Organization [facility] Address [address] [place] [address] Care Team Providers Care Divinity Teacher Name Role Phone Unavailable Primary Care Provider Unavailabl e Source Comments [facility],non-owned Affiliates and Associated Physician Practices is amultiple site organization consisting of ambulatory clinics and hospital sitesin [place], [place], [place] and [place]. This disclosure is being madepursuant to the Care Everywhere program and may not contain all information available regarding this patient. Last updated 18.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
== END 2025-07-09 15:29 | disposition home or self-care (01) ==
PROVIDERS: PCP Family Medicine; Visit Provider Family Medicine
DX: R93.89 Abnormal findings on diagnostic imaging of other specified body structures (principal); R79.89 Other specified abnormal findings of blood chemistry; R13.10 Dysphagia, unspecified
CPT/HCPCS: 76536; 76801; 76817

== ENCOUNTER 2025-07-11 09:07 | Emergency (ER) | payer OTHER, SELFPAY ==
[2025-07-11 09:18] VITALS: BP 133/94; PULSE 84; RESP 19; TEMP 36.6; O2SAT 99
--- NOTE | 2025-07-11 09:21 | ED.URI ---
HPI - URI/Sore Throat General Chief Complaint: Upper Respiratory Infection Stated Complaint: Sore Throat Patient presents to the [facility] with complaints of coarse voice, nasal congestion, nasal drainage, and scratchy throat with mild cough that began about 3 days ago. Patient reports mother has leukemia and she would like to be checked out. Using ibuprofen and Tylenol at home with some relief of symptoms. No known sick contacts. Denies fever, chills, body aches, shortness of breath, dizziness, difficulty swallowing, nausea, vomiting, diarrhea. Related Data Home Medications ?Medication ?Instructions ?Recorded ?Confirmed ?Last Taken ?Type Compounded Semaglutide subcut 12/17/24 04/28/25 Unknown History Allergies Allergy/AdvReac Type Severity Reaction Status Date / Time metoprolol AdvReac Intermediate bradycardia Verified 07/11/25 09:17 with HR<50 on 25mg dose(succinate) Review of Systems Constitutional: Constitutional: Reports as per HPI, Denies chills, Reports fatigue, Denies fever(s) and Denies weakness Eyes: Eyes: Reports no additional eye complaints ENT: Reports as per HPI, Denies vertigo, Denies dizziness, Reports nasal congestion and Reports sore throat Cardiovascular: Cardiovascular: Reports no additional cardiovascular complaints Respiratory: Respiratory: Reports as per HPI, Denies chest congestion, Reports cough, Denies dyspnea and Denies wheezing Gastrointestinal: Gastrointestinal: Reports no additional gastrointestinal complaints Genitourinary: Genitourinary: Reports no additional female genitourinary complaints Musculoskeletal: Musculoskeletal: Reports as per HPI, Denies back pain and Denies myalgias Integumentary/Breasts: Skin/Breast: Reports as per HPI, Denies erythema and Denies rash Neurologic: Reports as per HPI, Denies vertigo, Denies dizziness, Reports headache(s), Denies numbness and Denies weakness Psychiatric: Psychiatric: Reports no additional psychiatric complaints Endocrine: Endocrine: Reports no additional endocrine complaints Hematologic/Lymphatic: Hematologic/Lymphatic: Reports no additional hematologic/lymphatic complaints Allergic/Immunologic: Allergic/Immunologic: Reports no additional allergic/immunologic complaints [facility] Past Medical History Medical History Carpal tunnel syndrome Right Hand 04/2024 Left Hand 07/22/2024 Anxiety and depression HTN (hypertension) Surgical History Surgical History History of carpal tunnel surgery History of tonsillectomy History of dilatation and curettage [place] teeth extracted History of cholecystectomy Family History Family History Father Hypertension Heart problem Cancer Mother Cancer Hypertension Thyroid disorder Sibling Thyroid disorder Grandparent Thyroid disorder Other Family history of cardiovascular disease Social History Social History Smoking packs per day: 0.5 Smoking cigarettes per day: 10.0 Years smoked: 3 Smoking pack-years: 1.50 Smoking status: Never smoker Tobacco type: e-cigarettes/vaping Smoking end date: 09/16/21 Additional smoking assessment comments: 5 YRS DAILY VAPING, NO CIGARETTES AT THIS TIME Alcohol intake: current Drinks per week: 1 Alcohol use details: 1-2 PER MONTH Substance use: former Substance use type: marijuana Other substance usage details: LAST USE 3 YRS AGO Living arrangements: with family Spiritual care concerns: No Exam Const: General: healthy appearing and no acute distress Nutritional Appearance: well nourished Orientation/consciousness: patient oriented x3 Limitations: no limitations HENMT: Head: normal to inspection Ears: external ears normal and TM's normal bilaterally Face/Nose/Sinus: Normal external nose present and Normal nares present Face and sinus: normal facial exam and sinuses nontender Mouth: Yes Normal oral and palatal mucosa present, Yes lip normal and Yes moist mucous membranes Throat: posterior oropharynx normal Other: Hoarse voice Neck: Neck: normal visual inspection and no lymphadenopathy Resp: Effort & Inspection: normal respiratory effort Auscultation: clear to auscultation bilaterally Cardio: Rate: regular rate Rhythm: regular rhythm Skin: General skin exam: normal color Rashes: no rashes Wounds: no wounds Neuro: General: patient oriented x3 Speech: normal speech Gait exam (Neuro): Normal gait present Psych: Mental Status: mental status grossly normal Affect: normal affect Attitude: cooperative Course Course Level of Care: Express Care Visit MDM - URI/Sore Throat MDM Narrative Medical decision making narrative: testing negative. Likely viral in nature. The patient was evaluated by myself in the express care. History is obtained from patient who is an independent historian and physical exam was performed. Available medical records were reviewed at this time. Exam findings show no acute concerns or changes; patient is non-toxic appearing and is in no distress. Patient is appropriate for outpatient treatment and follow-up. I have evaluated and discussed social determinants of health with the patient that could potentially impact subsequent diagnosis and treatment plans. Differential diagnosis and treatment plan were discussed with the patient. Patient agrees with discussion and after shared medical decision making agrees with plan of care. All questions were answered to the patient's satisfaction. Differential Diagnosis Differential diagnosis: Likely upper respiratory infection, croup, otitis media, sinusitis, viral infection, bronchitis, influenza and pharyngitis Medical Records Attestation: I reviewed the patient's medical records. Lab Data Attestation: I reviewed the patient's lab results. Discharge Plan Discharge Clinical Impression: Upper respiratory infection Patient Disposition: Home Condition: Stable Instructions: Antibiotic Form, Viral Syndrome (ED), Cold Symptoms (ED) Additional Instructions: Viral illness may last between 7-12days; antibiotic is NOT recommended at this time. Recommend antihistamine such as Benadryl at night time and Claritin/Zyrtec/Karishma during the day. Also using steroid nasal spray like Flonase can help with symptoms and congestion. Using sudafed for significant congestion will also give some relief. Cough syrup may cause drowsiness; avoid driving or take it at night time. Use inhaler as needed for cough, wheezing, shortness of breath or chest tightness. Also, recommend symptomatic treatment includes: rest, fluids, increase humidity of the air at home. Recommend Acetaminophen or nonsteroidal anti-inflammatory agents(NSAIDs) as directed in the bottle to reduce fever and/pain/headache. Avoid smoking/second-hand smoke. Limit visits to areas with large crowds. Frequent hand washing or hand net application support specialist is one of the best ways to prevent spread of infection. Please schedule a followup visit with your personal physician for further evaluation and treatment within 3-5days. Including recheck and discussion of your blood pressure. If your symptoms persist, change or worsen significantly before you can contact your personal physician then please, without delay, go to the emergency department for further evaluation. Patient Language: Wolof Prescriptions: No Action Compounded Semaglutide subcut buspirone 10 mg tablet 10 mg PO BID Qty: 60 3RF metoprolol succinate 25 mg tablet extended release 24 hr 25 mg PO DAILY Qty: 90 1RF Follow-up/Referrals: Haily Noel MD [Primary Care Provider, [facility]] Time of Disposition: 09:45
[2025-07-11 09:37] LABS: EDCOVIDSCREEN Negative (Negative); EDINFLUASCREEN Negative (Negative); EDINFLUBSCREEN Negative (Negative); EDSTREPNEGPOS1 Negative (Negative)
== END 2025-07-11 09:47 | disposition home or self-care (01) ==
PROVIDERS: Emergency Provider Nurse Practitioner Family; PCP Family Medicine
DX: J06.9 Acute upper respiratory infection, unspecified (principal); Z20.822 Contact with and (suspected) exposure to COVID-19; F17.290 Nicotine dependence, other tobacco product, uncomplicated; I10 Essential (primary) hypertension
CPT/HCPCS: 87081; 87426; 87804; 87880; 99213; G0463

== ENCOUNTER 2025-07-26 09:02 | Outpatient (CLI) | payer OTHER, SELFPAY ==
--- OUTSIDE RECORDS SUMMARY | 2025-07-26 09:32 | XMS_ITS | Clinical Summary ---
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
--- OUTSIDE RECORDS SUMMARY | 2025-07-26 09:32 | XMS_ITS | Clinical Summary ---
Author Organization [facility] Address [address] [address] Care Team Providers Care Cytogeneticist Name Role Phone Unavailable Primary Care Provider Unavailabl e Source Comments [facility],non-owned Affiliates and Associated Physician Practices is amultiple site organization consisting of ambulatory clinics and hospital sitesin [place], [place], [place] and [place]. This disclosure is being madepursuant to the Care Everywhere program and may not contain all information available regarding this patient. 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
--- OUTSIDE RECORDS SUMMARY | 2025-07-26 09:32 | XMS_ITS | Clinical Summary ---
Author Organization [facility] [address] [place] [address] Phone Care Team Providers Care Medical Technician Name Role Phone Haily Noel MD Primary Care Provider [phone] Social History Tobacco Use Types Packs/Day Years Used Date Smoking Tobacco: Never Assessed Comments Unknown Sex and Gender Information Value Date Recorded Sex Assigned at Not on file Legal Sex Female 3:35 PM CDT Gender Identity Not on file Sexual Orientation Not on file Last Filed Vital Signs Vital Sign Reading Time Taken Comments Blood Pressure 117/67 07/28/2015 11: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 si tting Pulse 82 07/28/2015 11: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 Temperature - - Respiratory Rate - - Oxygen Saturation - - Inhaled Oxygen Concentration - - Weight 147.9 kg (326 lb) 07/28/2015 11: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 Height 167.6 cm (5' 6) 07/28/2015 11: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 Body Mass Index 52.62 07/28/2015 11: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 Plan of Treatment Health Maintenance Due Date Last Done Comments DTAP/TDAP/TD VACCINES (1 - Tdap) 2009 HEPATITIS B VACCINES (1 of 3 - 19+ 3-dose series) 01/14 HPV/Cotest (21-29) 2011 HPV VACCINES (1 - 3-dose SCDM series) 2017 CERVICAL CANCER SCREENING 01/31/2020 HPV/Cotest (30-65) 01/31/2020 PAP SMEAR 01/31/2020 INFLUENZA VACCINE (#1) 2025 Care Teams Medical Technician Relationship Specialty Start Date End Date Haily Noel MD PCP - General Family Practice 11/22/15
[2025-07-26 13:28] LABS: Beta HCG Quantitative < 2.39 mIU/ML
== END 2025-07-26 09:03 | disposition home or self-care (01) ==
LOC: ANHGOSHLAB 09:03
PROVIDERS: PCP Family Medicine; Visit Provider Family Medicine
DX: Z34.90 Encounter for supervision of normal pregnancy, unspecified, unspecified trimester (principal)
CPT/HCPCS: 36415; 84702